=== PATIENT | male | born 1955 | race Caucasian/White ===

== ENCOUNTER 2018-07-17 15:20 | Emergency (ER) | payer MEDICARE, OTHER | END 2018-07-17 17:23 | disposition home or self-care (01) | LOC: M ED 17:23 | DX: J47.0 Bronchiectasis with acute lower respiratory infection (principal); Z72.0 Tobacco use; Z79.899 Other long term (current) drug therapy | CPT/HCPCS: 71046 ==

== ENCOUNTER 2018-07-22 09:11 | Emergency (ER) | payer MEDICARE, OTHER ==
[2018-07-22] MEDS ORDERED: predniSONE 20 MG TAB As Ordered (09:43)
[2018-07-22] MEDS: IPRATROPIUM 0.5MG/ALBUTEROL 2.5MG INH SOL UD 3ML (DUONEB)(J7620) NEB (09:46)
[2018-07-22] MEDS: predniSONE 20 MG TAB PO (09:48)
[2018-07-22 10:18] LABS: HEMATOCRIT 39.3 % (42.0-52.0); HEMOGLOBIN 13.1 g/dl (13.5-17.5); MEAN CORPUSCULAR HEMOGLOBIN 30.9 pg (27.0-33.0); MEAN CORPUSCULAR HGB CONC 33.3 g/dl (32.0-36.5); MEAN CORPUSCULAR VOLUME 92.7 fl (80.0-96.0); PLATELET COUNT, AUTOMATED 181 10^3/uL (150-450); RED BLOOD COUNT 4.24 10^6/uL (4.30-6.10); RED CELL DISTRIBUTION WIDTH 13.5 % (11.5-14.5); WHITE BLOOD COUNT 9.7 10^3/uL (4.0-10.0)
[2018-07-22 10:55] LABS: ANION GAP 8 MEQ/L (8-16); BLOOD UREA NITROGEN 11 MG/DL (7-18); CALCIUM LEVEL 8.3 MG/DL (8.8-10.2); CARBON DIOXIDE LEVEL 25 MEQ/L (21-32); CHLORIDE LEVEL 108 MEQ/L (98-107); CREATININE FOR GFR 0.86 MG/DL (0.70-1.30); GLOMERULAR FILTRATION RATE > 60.0 (>49); GLUCOSE, FASTING 89 MG/DL (70-100); POTASSIUM SERUM 4.1 MEQ/L (3.5-5.1); SODIUM LEVEL 141 MEQ/L (136-145)
== END 2018-07-22 10:50 | disposition home or self-care (01) ==
LOC: M ED 09:11
DX: J44.1 Chronic obstructive pulmonary disease with (acute) exacerbation (principal); Z85.528 Personal history of other malignant neoplasm of kidney; Z90.5 Acquired absence of kidney; Z72.0 Tobacco use; Z79.899 Other long term (current) drug therapy
CPT/HCPCS: 71046

== ENCOUNTER 2018-11-08 15:44 | Emergency (ER) | payer MEDICARE, OTHER ==
[~2018-11-08] VITALS: Ht 185.4 cm; Wt 67.0 kg
[~2018-11-08 15:44] MED LIST: CEPA1LOZ5 PO; COMBAER6 INH; GABA-845 PO; PRED20TA PO; SING10TA32 PO; VENTAER INH; ZITHTAB PO
[2018-11-08] MEDS ORDERED: ALBU83IN NEB (15:57)
[2018-11-08] MEDS ORDERED: GABA600T4 PO (15:57)
--- NOTE | 2018-11-08 17:10 | REP ---
Chest two views HISTORY: Cough Comparison: 07/22/2018 The lungs are hyperinflated. An increase in interstitial markings is present in the lungs. Curvilinear density is present in the right upper lobe consistent with scarring. Bullae are present in the upper lobes. The heart is normal in size. The pulmonary vasculature is normal in appearance. The bony structure is intact. IMPRESSION: Findings consistent with COPD. Electronically Signed by Arvind Dowell MD 11/08/2018 05:02 P
[2018-11-08 17:26] VITALS: BP 116/71
[2018-11-08] MEDS ORDERED: MUCI600T37 PO (17:38)
[2018-11-08] MEDS ORDERED: LIDO1SOL7 PO (17:38)
== END 2018-11-08 17:47 | disposition home or self-care (01) ==
LOC: M ED 15:44
DX: J02.8 Acute pharyngitis due to other specified organisms (principal); J40 Bronchitis, not specified as acute or chronic; J44.9 Chronic obstructive pulmonary disease, unspecified; Z79.899 Other long term (current) drug therapy

== ENCOUNTER → 2018-11-16 | Outpatient (CLI) | payer MEDICARE, OTHER ==
[~2018-11-16] MED LIST changes: +ALBU83IN NEB; +GABA600T4 PO; +LIDO1SOL7 PO; +MUCI600T37 PO
== END ==
LOC: M RAD 15:44
PROVIDERS: ATTEND Otolaryngology
DX: R22.1 Localized swelling, mass and lump, neck (principal)

== ENCOUNTER → 2018-11-17 | Outpatient (CLI) | payer MEDICARE, OTHER ==
[~2018-11-17] MED LIST changes: +ISOVUE-370 76% 100ML VIAL (Q9967) As Ordered ONE
[2018-11-17 08:11] LABS: BLOOD UREA NITROGEN 13 MG/DL (7-18); CREATININE FOR GFR 1.03 MG/DL (0.70-1.30); GLOMERULAR FILTRATION RATE > 60.0 (>49)
--- NOTE | 2018-11-17 19:18 | REP ---
CT NECK WITHOUT CONTRAST: HISTORY: Neck mass. CONTRAST: Isovue-370, 75 mL A BB was placed on the left side of the neck at the C4-5 level. There is thickening of the epiglottis and aryepiglottic folds. There is inferior extension to the flow of the false vocal cords. There is very mild mass effect on the hypopharynx. The naso- and oropharynx, and subglottic trachea are normal in appearance. The salivary and thyroid glands are normal in size and density. Calcified atherosclerotic plaques are present at the carotid bifurcations. Small lymph nodes less than 1 cm in size are present in the posterior triangles, submandibular and submental areas. Degenerative change is present in the cervical spine. Bullae are present in the lung apices. Scarring is present in the left lung apex. Mucosal thickening is present in the maxillary and right ethmoid sinuses. IMPRESSION: There is thickening of the epiglottis and aryepiglottic folds suspicious for a neoplasm. There is mild mass effect on the hypopharynx. Electronically Signed by Arvind Dowell MD 11/17/2018 07:21 P
== END ==
LOC: M LAB 07:13
PROVIDERS: ATTEND Otolaryngology
DX: R22.1 Localized swelling, mass and lump, neck (principal); J43.9 Emphysema, unspecified; M50.30 Other cervical disc degeneration, unspecified cervical region; I65.23 Occlusion and stenosis of bilateral carotid arteries
CPT/HCPCS: 36415; 70491; 82565; 84520; Q9967

== ENCOUNTER → 2018-11-25 | Outpatient (CLI) | payer MEDICARE, OTHER ==
[~2018-11-25] MED LIST changes: +AMOX875T2 PO; +HYDR-3713 PO; +IPRA0.00 INH; -ISOVUE-370 76% 100ML VIAL (Q9967) As Ordered ONE
[2018-11-25 07:49] LABS: HEMATOCRIT 39.9 % (42.0-52.0); HEMOGLOBIN 13.2 g/dl (13.5-17.5); MEAN CORPUSCULAR HEMOGLOBIN 30.6 pg (27.0-33.0); MEAN CORPUSCULAR HGB CONC 33.1 g/dl (32.0-36.5); MEAN CORPUSCULAR VOLUME 92.4 fl (80.0-96.0); PLATELET COUNT, AUTOMATED 220 10^3/uL (150-450); RED BLOOD COUNT 4.32 10^6/uL (4.30-6.10); WHITE BLOOD COUNT 6.7 10^3/uL (4.0-10.0)
[2018-11-25 08:19] LABS: ALBUMIN 3.6 GM/DL (3.2-5.2); ALT/SGPT 16 U/L (12-78); BILIRUBIN,TOTAL 0.3 MG/DL (0.2-1.0); BLOOD UREA NITROGEN 17 MG/DL (7-18); CALCIUM LEVEL 8.7 MG/DL (8.8-10.2); CARBON DIOXIDE LEVEL 26 MEQ/L (21-32); CHLORIDE LEVEL 109 MEQ/L (98-107); CHOLESTEROL LEVEL 156 MG/DL (<200); CHOLESTEROL RISK RATIO 3.466 (<5); FREE T4 0.66 NG/DL (0.76-1.46); GLOMERULAR FILTRATION RATE > 60.0 (>49); GLUCOSE, FASTING 117 MG/DL (70-100); HDL CHOLESTEROL 45 MG/DL (>40); LDL CHOLESTEROL 96 MG/DL (<100); NON-HDL-C 111 MG/DL; POTASSIUM SERUM 4.8 MEQ/L (3.5-5.1); SODIUM LEVEL 142 MEQ/L (136-145); THYROID STIMULATING HORMONE 0.897 uIU/ML (0.358-3.740); TOTAL PROTEIN 6.9 GM/DL (6.4-8.2); TRIGLYCERIDES LEVEL 77 MG/DL (<150)
--- NOTE | 2018-11-25 09:15 | REP ---
Chest two views HISTORY: COPD Comparison: 11/08/2018 The lungs are hyperinflated. An increase in interstitial markings is present in the lungs. Curvilinear density is present in the right upper lobe consistent with scarring. Bullae are present in the upper lobes. The heart is normal in size. The pulmonary vasculature is normal in appearance. The bony structure is intact. IMPRESSION: COPD. Electronically Signed by Arvind Dowell MD 11/25/2018 09:06 A
[2018-11-25 10:04] LABS: TOTAL 25(OH) VITAMIN D 15.4 NG/ML (30.0-100.0)
== END ==
LOC: M LAB 07:21
PROVIDERS: ATTEND Physician Assistant
DX: J44.0 Chronic obstructive pulmonary disease with (acute) lower respiratory infection (principal); Z85.528 Personal history of other malignant neoplasm of kidney; Z79.899 Other long term (current) drug therapy

== ENCOUNTER 2018-12-01 10:19 | Day surgery (SDC) | payer MEDICARE, OTHER ==
[~2018-12-01] VITALS: Ht 185.4 cm; Wt 72.1 kg
[2018-12-01] MEDS ORDERED: LR 1,000 ML IV ONE (10:30)
[2018-12-01] MEDS ORDERED: dexameTHASONE 4 MG/ML 1ML VIAL (J1100) IV ONE (10:30)
[2018-12-01] MEDS ORDERED: MIDAZOLAM INJ 2 MG/2 ML VIAL (J2250) As Ordered ONE (12:12)
[2018-12-01] MEDS ORDERED: PROPOFOL 200 MG/20 ML VIAL As Ordered ONE (12:12)
[2018-12-01] MEDS ORDERED: fentaNYL 100 MCG/2 ML INJECTION (J3010) As Ordered ONE ×3 (12:12→13:17)
[2018-12-01] MEDS ORDERED: ROCURONIUM BROMIDE 50 MG/5 ML VIAL As Ordered ONE (12:13)
[2018-12-01] MEDS ORDERED: ONDANSETRON 4MG/2ML VIAL (J2405) As Ordered ONE (12:14)
[2018-12-01] MEDS ORDERED: SUCCINYLCHOLINE 100 MG/5 ML SYRINGE (J0330) As Ordered ONE (12:14)
[2018-12-01] MEDS ORDERED: dexameTHASONE 4 MG/ML 1ML VIAL (J1100) As Ordered ONE ×2 (12:14→13:10)
[2018-12-01] MEDS ORDERED: OXYMETAZOLINE NASAL SPRAY (AFRIN) As Ordered ONE (12:16)
[2018-12-01] MEDS ORDERED: LIDOCAINE W/EPINEPHRINE 1% 20ML VIAL As Ordered ONE (12:16)
[2018-12-01] MEDS ORDERED: METHYLENE BLUE 0.5% (5MG/ML) 10 ML AMP (PROVAYBLUE)(Q9968 PER 1MG) As Ordered ONE (12:16)
[2018-12-01] MEDS ORDERED: LIDOCAINE 2% INJ 100 MG/5 ML SDV (FOR ANES.) As Ordered ONE (13:02)
[2018-12-01] MEDS ORDERED: GLYCOPYRROLATE INJ 0.2 MG/ML 2 ML VIAL As Ordered ONE (13:13)
[2018-12-01] MEDS ORDERED: PHENYLephrine HCL 500 MCG/5 ML (100MCG/ML) SYRINGE (J2370) As Ordered ONE (13:25)
[2018-12-01] MEDS ORDERED: SUGAMMADEX SODIUM 500 MG/5 ML VIAL (BRIDION) As Ordered ONE (13:34)
[2018-12-01] MEDS ORDERED: NORCO, ANEXSIA 5/325MG TABLET (HYDROcodone/ACETAMINOPHEN) As Ordered ONE (14:19)
[2018-12-01 14:29] VITALS: BP 124/76
[2018-12-01] MEDS ORDERED: fentaNYL 100 MCG/2 ML INJECTION (J3010) IV PRN (14:30)
[2018-12-01] MEDS ORDERED: LR 1,000 ML IV SCH ×2 (14:30)
[2018-12-01] MEDS ORDERED: PERCOCET 5MG/325MG TAB PO PRN (14:30)
[2018-12-01] MEDS ORDERED: NORCO, ANEXSIA 5/325MG TABLET (HYDROcodone/ACETAMINOPHEN) PO PRN (14:30)
--- NOTE | 2018-12-05 15:19 | RO ---
DATE OF PROCEDURE: 12/01/2018 PREPROCEDURE DIAGNOSES: Sore throat and dysphonia. POSTPROCEDURE DIAGNOSES: Sore throat and dysphonia. PROCEDURE PERFORMED: Direct suspension microlaryngoscopy with biopsy of the laryngeal surface of the epiglottis. SURGEON: Stone Willingham MD CLOTH EXAMINER: ANESTHESIA: General. CLINICAL PREAMBLE: This 63-year-old man presented to the office complaining of sore throat for at least 2 to 3 months. Flexible laryngoscopy revealed mucosal lesion over the laryngeal surface of the epiglottis. The lesions appeared to be highly suspicious for a malignant process. Management options, including the surgery listed above have been discussed. The patient understood and consented to the procedure. INTRAOPERATIVE FINDINGS: Mucosal lesion on the laryngeal surface of the epiglottis extending down to the petiole of the epiglottis area. DESCRIPTION OF PROCEDURE: The patient was identified in preoperative holding and brought to the operating room in stable condition. He was laid in supine position on the operating table. The patient received general anesthesia followed by orotracheal tube intubation without incident. The patient was prepped and draped in the usual fashion for the procedure. Bimanual palpation of the oral cavity, oral tongue, base of tongue, lateral and posterior oropharyngeal bucio showed no evidence of discreet nodule. The Dedo-Pilling laryngoscope was used to perform inspection of the mucosa of the oral cavity, oropharynx, piriform sinuses and the posterior pharyngeal area. No mucosal lesions were noted in those anatomic regions. Mucosal lesions were noted over the laryngeal surface of the epiglottis and extending down to the petiole. The aryepiglottic folds were mildly edematous. The true and false cords were free of mucosal lesion. The epiglottis appeared to be quite . The biopsies were obtained from the laryngeal surface of the epiglottis. Hemostasis was achieved using cottonoid pledgets soaked in Afrin solution. At the end of the procedure, sponge and instrument counts were correct. No complications were encountered. Estimated blood loss less than 1 mL. General anesthesia was reversed, and the patient was extubated and brought to the recovery room in stable condition.
== END 2018-12-01 15:26 | disposition home or self-care (01) ==
LOC: M SDC 10:19
PROVIDERS: ATTEND Otolaryngology
DX: C10.1 Malignant neoplasm of anterior surface of epiglottis (principal); R49.0 Dysphonia; J02.9 Acute pharyngitis, unspecified; J38.7 Other diseases of larynx; J44.9 Chronic obstructive pulmonary disease, unspecified; M47.816 Spondylosis without myelopathy or radiculopathy, lumbar region; F17.200 Nicotine dependence, unspecified, uncomplicated; R06.02 Shortness of breath; M54.9 Dorsalgia, unspecified; Z79.899 Other long term (current) drug therapy; Z85.528 Personal history of other malignant neoplasm of kidney
CPT/HCPCS: 31535; 88305; 88342; J0330; J1100; J2250; J2370; J2405; J3010; Q9968

== ENCOUNTER → 2018-12-29 | Outpatient (REF) | payer MEDICARE, OTHER ==
[2018-12-29 12:24] LABS: FOLATE 4.6 NG/ML (>5.4); FREE T4 0.78 NG/DL (0.76-1.46); PERCENT SATURATION 37.9 % (19.7-50.0); THYROID STIMULATING HORMONE 0.47 uIU/ML (0.358-3.740)
[2018-12-29 13:11] LABS: HEMOGLOBIN A1c 5.7 %
== END ==
LOC: M SFHCPLAZ 09:17
PROVIDERS: ATTEND Physician Assistant
DX: D64.9 Anemia, unspecified (principal); Z85.528 Personal history of other malignant neoplasm of kidney; R73.01 Impaired fasting glucose
CPT/HCPCS: 36415; 82607; 82728; 82746; 83036; 83550; 84439; 84443; 85046; 90682; G0008; G0463

== ENCOUNTER → 2019-01-09 | Outpatient (CLI) | payer MEDICARE, OTHER ==
--- NOTE | 2019-01-09 14:21 | REP ---
Chest two views HISTORY: COPD Comparison: 11/25/2018 The lungs are hyperinflated. An increase in interstitial markings is present in the lungs. Curvilinear density is present in the right upper lobe consistent with scarring. Bullae are present in the upper lobes. The heart is normal in size. The pulmonary vasculature is normal in appearance. The bony structure is intact. There are old compression fractures of several thoracic vertebral bodies with minimal height loss. IMPRESSION: COPD. Electronically Signed by Arvind Dowell MD 01/09/2019 02:12 P
[2019-01-09 17:27] LABS: ALBUMIN 3.6 GM/DL (3.2-5.2); ALT/SGPT 19 U/L (12-78); BILIRUBIN,TOTAL 0.4 MG/DL (0.2-1.0); BLOOD UREA NITROGEN 20 MG/DL (7-18); CALCIUM LEVEL 8.9 MG/DL (8.8-10.2); CARBON DIOXIDE LEVEL 33 MEQ/L (21-32); CHLORIDE LEVEL 102 MEQ/L (98-107); CREATININE FOR GFR 0.98 MG/DL (0.70-1.30); GLOMERULAR FILTRATION RATE > 60.0 (>49); GLUCOSE, FASTING 95 MG/DL (70-100); POTASSIUM SERUM 4.6 MEQ/L (3.5-5.1); SODIUM LEVEL 139 MEQ/L (136-145); TOTAL PROTEIN 6.9 GM/DL (6.4-8.2)
[2019-01-09 17:56] LABS: BASO # 0.1 10^3/uL (0.0-0.2); BASO % 0.8 % (0.0-1.0); EOS # 0.2 10^3/uL (0.0-0.50); HEMATOCRIT 41.4 % (42.0-52.0); HEMOGLOBIN 13.6 g/dl (13.5-17.5); LYMPH # 2.1 10^3/uL (1.5-4.5); LYMPH % 23.4 % (24.0-44.0); MEAN CORPUSCULAR HEMOGLOBIN 31.1 pg (27.0-33.0); MEAN CORPUSCULAR HGB CONC 32.9 g/dl (32.0-36.5); MEAN CORPUSCULAR VOLUME 94.7 fl (80.0-96.0); MONO # 0.7 10^3/uL (0.0-0.8); MONO % 7.8 % (0.0-5.0); NEUTROPHILS # 5.8 10^3/uL (1.8-7.7); NEUTROPHILS % 65.9 % (36.0-66.0); PLATELET COUNT, AUTOMATED 242 10^3/uL (150-450); RED BLOOD COUNT 4.37 10^6/uL (4.30-6.10); WHITE BLOOD COUNT 8.8 10^3/uL (4.0-10.0)
== END ==
LOC: M SMT 13:23
PROVIDERS: ATTEND Physician Assistant Medical
DX: J01.01 Acute recurrent maxillary sinusitis (principal); J44.1 Chronic obstructive pulmonary disease with (acute) exacerbation
CPT/HCPCS: 36415; 71046; 80053; 85025; G0463

== ENCOUNTER → 2019-01-11 | Outpatient (CLI) | payer MEDICARE, OTHER ==
--- NOTE | 2019-01-11 11:35 | REP ---
LOW-DOSE LUNG SCREENING CT: 01/11/2019. COMPARISON: Chest x-ray 01/09/2019, CT angio 08/14/2013. CLINICAL HISTORY: Personal history of nicotine dependence. FINDINGS: Lung windows presented for standard protocol with low-dose lung screening CT. Lungs are hyperinflated. There is a giant bulla in the right apex, unchanged. There is extensive bullous emphysematous change in both upper lung zones otherwise with scattered bulla throughout the mid and lower lung zones to a much lesser extent. There is no pleural effusion, pleural thickening, or pleural-based mass. There is curvilinear scarring in the left apex, pleuroparenchymal fibrosis unchanged. There are also some linear fibrotic and stable nodular densities in the right apex and upper lobe. Some cylindrical bronchiectatic changes are noted bilaterally. No parenchymal masses are identified. No definite new nodule or acute infiltrate. Heart size not enlarged. No widening of the mediastinum. Ectatic aortic arch. The trachea and mainstem bronchi, grossly unremarkable. IMPRESSION: 1. Findings best characterized as Lung-RADS 2, benign findings. Patients with this category of examination have less than 1% chance of malignancy being present at the time of the examination. Followup recommended 1 year. There is advanced bullous emphysematous change, which appears stable. Electronically Signed by Felix Pretty MD 01/11/2019 09:50 P
== END ==
LOC: M RAD 07:57
PROVIDERS: ATTEND Physician Assistant
DX: Z87.891 Personal history of nicotine dependence (principal)

== ENCOUNTER → 2019-01-31 | Outpatient (REF) | payer MEDICARE, OTHER | LOC: M SFHCPLAZ 09:44 | PROVIDERS: ATTEND Physician Assistant | DX: J47.1 Bronchiectasis with (acute) exacerbation (principal) ==

== ENCOUNTER → 2019-03-06 | Outpatient (REF) | payer MEDICARE, OTHER ==
[~2019-03-06] MED LIST changes: -CEPA1LOZ5 PO; +CEPALOZ8 PO; -LIDO1SOL7 PO; +LIDO1SOL8 PO
== END ==
LOC: M SFHCPLAZ 12:58
PROVIDERS: ATTEND Nurse Practitioner Family
DX: J44.1 Chronic obstructive pulmonary disease with (acute) exacerbation (principal)
CPT/HCPCS: 87070; 87185; 87205; G0463

== ENCOUNTER → 2019-09-19 | Outpatient (CLI) | payer MEDICARE, OTHER ==
[2019-09-19 15:57] LABS: BLOOD UREA NITROGEN 12 MG/DL (7-18); CREATININE FOR GFR 1.12 MG/DL (0.70-1.30); GLOMERULAR FILTRATION RATE > 60.0 (>49)
== END ==
LOC: M LAB 14:39
PROVIDERS: ATTEND Otolaryngology
DX: C32.1 Malignant neoplasm of supraglottis (principal); R07.0 Pain in throat

== ENCOUNTER → 2019-09-20 | Outpatient (CLI) | payer MEDICARE, OTHER ==
[~2019-09-20] MED LIST changes: +ISOVUE-370 76% 100ML VIAL (Q9967) As Ordered ONE
--- NOTE | 2019-09-20 17:03 | REP ---
CT neck soft tissues: 09/20/2019. Indication: Sore throat. Comparison: 05/22/2019 and 11/17/2018. Technique: Axial CT images of the neck soft tissues were obtained following IV administration of 75 ml Isovue 370. Findings: There is continued thickening of the aryepiglottic folds and base of the epiglottis with nodularity particularly on the right of the pharyngeal mucosal space. There is not appear to be tumor extension into the parapharyngeal space. Loss of tissue planes is noted, indicative of prior radiation. The patient appears cachectic. Bilateral carotid atherosclerotic disease is present. No significant cervical lymphadenopathy is present. No ocular, intraorbital or intracranial abnormalities are detected. The submandibular, parotid and thyroid glands are without focal abnormality. Significant bulla and emphysematous sequelae of the visualized lungs are noted. Impression: Continued prominent soft tissue predominantly within the aryepiglottic folds on the right as described. Findings may represent a combination of residual neoplasm or post-treatment sequelae. Continued short-term imaging and clinical follow-up is recommended. Electronically Signed by Gennaro Woodard DO 09/20/2019 04:55 P
== END ==
LOC: M RAD 09-04 17:47
PROVIDERS: ATTEND Otolaryngology
DX: R07.0 Pain in throat (principal)
CPT/HCPCS: 70491; Q9967

== ENCOUNTER 2019-12-21 08:17 | Day surgery (SDC) | payer MEDICARE, OTHER ==
[~2019-12-21] VITALS: Ht 182.9 cm; Wt 67.8 kg
[~2019-12-21 08:17] MED LIST changes: +ALBU83IN INH; -ISOVUE-370 76% 100ML VIAL (Q9967) As Ordered ONE; -LIDO1SOL8 PO; +LIDO2SOL17 PO; +LIDOCAINE 2% INJ 100 MG/5 ML SDV (FOR ANES.) As Ordered ONE; +MOME50SP; +NS 1,000 ML IV ONE; +propofoL 200 MG/20 ML VIAL As Ordered ONE
[2019-12-21] MEDS ORDERED: GLUCAGON FOR INJ 1 MG VIAL (J1610) As Ordered ONE (09:15)
[2019-12-21] MEDS ORDERED: propofoL 200 MG/20 ML VIAL As Ordered ONE (09:17)
--- NOTE | 2019-12-21 09:48 | ROOR ---
Patient Name: Eladio Leung Procedure Date: 12/21/2019 8:56 AM Date of : 1955 Age: 64 Room: [facility] Gender: Male Note Status: Finalized Procedure: Colonoscopy Indications: Screening for colorectal malignant neoplasm Providers: Js CEBALLOS MD Referring MD: Farrah Douglass NP Requesting Provider: Medicines: Monitored Anesthesia Care Complications: No immediate complications. Procedure: Pre-Anesthesia Assessment: - The heart rate, respiratory rate, oxygen saturations, blood pressure, adequacy of pulmonary ventilation, and response to care were monitored throughout the procedure. The Colonoscope was introduced through the anus and advanced to the terminal ileum, with identification of the appendiceal orifice and IC valve. The colonoscopy was performed without difficulty. The patient tolerated the procedure well. The quality of the bowel preparation was fair. Findings: The perianal and digital rectal examinations were normal. Three flat polyps were found in the ascending colon and cecum. The polyps were 5 to 12 mm in size. These polyps were removed with a piecemeal technique using a cold snare. Resection and retrieval were complete. Three flat polyps were found in the descending colon. The polyps were 5 to 12 mm in size. These polyps were removed with a piecemeal technique using a cold snare. Resection and retrieval were complete. To prevent bleeding after the polypectomy, three hemostatic clips were successfully placed. Two sessile polyps were found in the sigmoid colon. The polyps were 5 to 8 mm in size. These polyps were removed with a cold snare. Resection and retrieval were complete. Internal hemorrhoids were found during retroflexion. A few medium-mouthed diverticula were found in the sigmoid colon. The exam was otherwise without abnormality on direct and retroflexion views. Impression: - Preparation of the colon was fair. - Three 5 to 12 mm polyps in the ascending colon and in the cecum, removed piecemeal using a cold snare. Resected and retrieved. - Three 5 to 12 mm polyps in the descending colon, removed piecemeal using a cold snare. Resected and retrieved. Clips were placed. - Two 5 to 8 mm polyps in the sigmoid colon, removed with a cold snare. Resected and retrieved. - Internal hemorrhoids. - Mild diverticulosis in the sigmoid colon. - The examination was otherwise normal on direct and retroflexion views. Recommendation: - Repeat colonoscopy in 1 year for surveillance after piecemeal polypectomy. - No ibuprofen, naproxen, or other non-steroidal anti-inflammatory drugs for 10 days after polyp removal. Js Ceballos MD Js CEBALLOS MD 12/21/2019 9:47:25 AM Electronically signed by Js CEBALLOS MD Number of Addenda: 0 Note Initiated On: 12/21/2019 8:56 AM Estimated Blood Loss: Estimated blood loss: none.
[2019-12-21 10:05] VITALS: BP 87/58
== END 2019-12-21 10:17 | disposition home or self-care (01) ==
LOC: M OPP 08:17
PROVIDERS: ATTEND Internal Medicine Gastroenterology
DX: Z12.11 Encounter for screening for malignant neoplasm of colon (principal); K64.8 Other hemorrhoids; D12.2 Benign neoplasm of ascending colon; D12.4 Benign neoplasm of descending colon; D12.5 Benign neoplasm of sigmoid colon; K57.30 Diverticulosis of large intestine without perforation or abscess without bleeding; Z79.899 Other long term (current) drug therapy; F17.210 Nicotine dependence, cigarettes, uncomplicated; Z85.53 Personal history of malignant neoplasm of renal pelvis; Z92.21 Personal history of antineoplastic chemotherapy; Z92.3 Personal history of irradiation
CPT/HCPCS: 45385; 88305; J1610

== ENCOUNTER → 2020-01-11 | Outpatient (REF) | payer MEDICARE, OTHER ==
[~2020-01-11] MED LIST changes: -LIDOCAINE 2% INJ 100 MG/5 ML SDV (FOR ANES.) As Ordered ONE; -NS 1,000 ML IV ONE; -propofoL 200 MG/20 ML VIAL As Ordered ONE
[2020-01-11 13:56] LABS: BASO # 0.1 10^3/uL (0.0-0.2); BASO % 1.6 % (0.0-1.0); EOS # 0.2 10^3/uL (0.0-0.5); EOS % 4.1 % (0.0-3.0); HEMOGLOBIN 12.9 g/dl (13.5-17.5); LYMPH # 0.9 10^3/uL (1.5-5.0); LYMPH % 22.2 % (24.0-44.0); MEAN CORPUSCULAR HGB CONC 33.1 g/dl (32.0-36.5); MEAN CORPUSCULAR VOLUME 99.7 fl (80.0-96.0); MONO # 0.5 10^3/uL (0.0-0.8); MONO % 12.9 % (0.0-5.0); NEUTROPHILS # 2.3 10^3/uL (1.5-8.5); NEUTROPHILS % 58.9 % (36.0-66.0); PLATELET COUNT, AUTOMATED 199 10^3/uL (150-450); RED BLOOD COUNT 3.91 10^6/uL (4.30-6.10); WHITE BLOOD COUNT 3.9 10^3/uL (4.0-10.0)
[2020-01-11 14:12] LABS: ALBUMIN 3.6 GM/DL (3.2-5.2); ALT/SGPT 15 U/L (12-78); BILIRUBIN,TOTAL 0.2 MG/DL (0.2-1.0); BLOOD UREA NITROGEN 12 MG/DL (7-18); CALCIUM LEVEL 8.4 MG/DL (8.8-10.2); CARBON DIOXIDE LEVEL 29 MEQ/L (21-32); CHLORIDE LEVEL 106 MEQ/L (98-107); CREATININE FOR GFR 0.94 MG/DL (0.70-1.30); FREE T4 0.79 NG/DL (0.76-1.46); GLOMERULAR FILTRATION RATE > 60.0 (>49); GLUCOSE, FASTING 85 MG/DL (70-100); POTASSIUM SERUM 4.4 MEQ/L (3.5-5.1); SODIUM LEVEL 138 MEQ/L (136-145); TOTAL PROTEIN 6.8 GM/DL (6.4-8.2)
== END ==
LOC: M SFHCPLAZ 11:51
PROVIDERS: ATTEND Nurse Practitioner Family
DX: J01.01 Acute recurrent maxillary sinusitis (principal); C14.0 Malignant neoplasm of pharynx, unspecified; N52.9 Male erectile dysfunction, unspecified; Z79.899 Other long term (current) drug therapy
CPT/HCPCS: 36415; 80053; 84439; 84443; 85025; G0463

== ENCOUNTER → 2020-04-02 | Outpatient (REF) | payer MEDICARE, OTHER ==
[2020-04-02 13:21] LABS: HEMATOCRIT 37.6 % (42.0-52.0); HEMOGLOBIN 12.8 g/dl (13.5-17.5); MEAN CORPUSCULAR HEMOGLOBIN 33.5 pg (27.0-33.0); MEAN CORPUSCULAR VOLUME 98.4 fl (80.0-96.0); PLATELET COUNT, AUTOMATED 193 10^3/uL (150-450); RED BLOOD COUNT 3.82 10^6/uL (4.30-6.10); WHITE BLOOD COUNT 4.7 10^3/uL (4.0-10.0)
[2020-04-02 14:03] LABS: BLOOD UREA NITROGEN 11 MG/DL (7-18); CALCIUM LEVEL 8.3 MG/DL (8.8-10.2); CARBON DIOXIDE LEVEL 27 MEQ/L (21-32); CHLORIDE LEVEL 107 MEQ/L (98-107); FERRITIN 178 NG/ML (26-388); FOLATE 1.7 NG/ML; GLOMERULAR FILTRATION RATE > 60.0 (>49); GLUCOSE, FASTING 72 MG/DL (70-100); POTASSIUM SERUM 4.1 MEQ/L (3.5-5.1); SODIUM LEVEL 137 MEQ/L (136-145); VITAMIN B12 LEVEL 238 PG/ML
== END ==
LOC: M SFHCPLAZ 11:50
PROVIDERS: ATTEND Nurse Practitioner Family
DX: D64.9 Anemia, unspecified (principal); E03.9 Hypothyroidism, unspecified; M47.816 Spondylosis without myelopathy or radiculopathy, lumbar region

== ENCOUNTER → 2020-10-23 | Outpatient (CLI) | payer MEDICARE, OTHER ==
--- NOTE | 2020-10-23 13:16 | REP ---
INDICATION: ENLARGED TESTICLE COMPARISON: 03/19/2009 TECHNIQUE: Angelo scale and color Doppler evaluation using linear and curved array transducer with color Doppler evaluation. FINDINGS: A large right complex hydrocele with septation and debris appears increased from prior examination. Right testicle again demonstrates a simple and relatively stable cyst in the region of the rete testis measuring approximately 11 x 17 x 8 mm. The left testicle includes a stable 3.6 x 4.4 x 3.6 mm simple cyst. The testicles demonstrate symmetric vascularity without evidence for torsion, obvious infectious/inflammatory process, or testicular mass. No varicoceles identified. Right testicle measures 5.0 x 2.6 x 3.3 cm. Left testicle measures 4.9 x 2.4 x 3.2 cm. IMPRESSION: 1. Large right complex hydrocele (less likely large ill-defined epididymal cyst) which appears slightly increased from prior examination of 2008. 2. Simple appearing cysts in the bilateral testicles are essentially unchanged. 3. No evidence for torsion or orchitis/epididymitis. <Electronically signed by Amilcar Tobar > 10/23/20 [id number]
== END ==
LOC: M RAD 12:23
PROVIDERS: ATTEND Physician Assistant
DX: N43.3 Hydrocele, unspecified (principal); N44.2 Benign cyst of testis; N50.89 Other specified disorders of the male genital organs; R30.0 Dysuria
CPT/HCPCS: 36415; 76870; 80053; 81001; 81002; 85025; 87086; 93976; G0103; G0463

== ENCOUNTER → 2020-10-23 | Outpatient (REF) | payer MEDICARE, OTHER ==
[2020-10-23 13:47] LABS: BASO % 0.9 % (0.0-1.0); EOS # 0.2 10^3/uL (0.0-0.5); EOS % 3.9 % (0.0-3.0); HEMATOCRIT 39.3 % (42.0-52.0); HEMOGLOBIN 12.9 g/dl (13.5-17.5); LYMPH # 0.8 10^3/uL (1.5-5.0); LYMPH % 16.7 % (24.0-44.0); MEAN CORPUSCULAR HEMOGLOBIN 33.1 pg (27.0-33.0); MEAN CORPUSCULAR HGB CONC 32.8 g/dl (32.0-36.5); MEAN CORPUSCULAR VOLUME 100.8 fl (80.0-96.0); MONO # 0.6 10^3/uL (0.0-0.8); MONO % 12.8 % (0.0-5.0); NEUTROPHILS # 3.1 10^3/uL (1.5-8.5); NEUTROPHILS % 65.5 % (36.0-66.0); PLATELET COUNT, AUTOMATED 244 10^3/uL (150-450); WHITE BLOOD COUNT 4.7 10^3/uL (4.0-10.0)
[2020-10-23 14:03] LABS: APPEARANCE, URINE CLEAR (CLEAR); BACTERIA, URINE AUTO NEGATIVE (NEGATIVE); BILIRUBIN, URINE AUTO NEGATIVE (NEGATIVE); BLOOD, URINE BLOOD NEGATIVE (NEGATIVE); COLOR, URINE STRAW (YELLOW); GLUCOSE, URINE (UA) AUTO NEGATIVE (NEGATIVE); KETONE, URINE AUTO NEGATIVE (NEGATIVE); LEUKOCYTE ESTERASE, URINE AUTO NEGATIVE (NEGATIVE); MUCUS, URINE SMALL (NEGATIVE); NITRITE, URINE AUTO NEGATIVE (NEGATIVE); PROTEIN, URINE AUTO NEGATIVE (NEGATIVE); RBC, URINE AUTO 0 /HPF (0-3); SPECIFIC GRAVITY URINE AUTO 1.009 (1.002-1.035); SQUAMOUS EPITHELIAL CELL UR AU 0 /HPF (0-6); UROBILINOGEN, URINE AUTO 0.2 mg/dL (0.0-2.0); WBC, URINE AUTO 1 /HPF (0-3)
[2020-10-23 14:18] LABS: ALBUMIN 3.8 GM/DL (3.2-5.2); ALT/SGPT 17 U/L (12-78); BILIRUBIN,TOTAL 0.2 MG/DL (0.2-1.0); BLOOD UREA NITROGEN 11 MG/DL (7-18); CALCIUM LEVEL 8.9 MG/DL (8.8-10.2); CARBON DIOXIDE LEVEL 30 MEQ/L (21-32); CHLORIDE LEVEL 103 MEQ/L (98-107); GLOMERULAR FILTRATION RATE > 60.0 (>49); GLUCOSE, FASTING 85 MG/DL (70-100); POTASSIUM SERUM 5.4 MEQ/L (3.5-5.1); SODIUM LEVEL 136 MEQ/L (136-145); TOTAL PROTEIN 6.8 GM/DL (6.4-8.2)
== END ==
LOC: M SFHCPLAZ 10:51
PROVIDERS: ATTEND Physician Assistant
DX: N50.89 Other specified disorders of the male genital organs (principal); R30.0 Dysuria
CPT/HCPCS: 36415; 80053; 81001; 85025; 87086; G0103

== ENCOUNTER → 2020-11-25 | Outpatient (REF) | payer MEDICARE, OTHER ==
[2020-11-25 13:45] LABS: HEMATOCRIT 38.1 % (42.0-52.0); HEMOGLOBIN 12.5 g/dl (13.5-17.5); MEAN CORPUSCULAR HEMOGLOBIN 33.5 pg (27.0-33.0); MEAN CORPUSCULAR HGB CONC 32.8 g/dl (32.0-36.5); MEAN CORPUSCULAR VOLUME 102.1 fl (80.0-96.0); PLATELET COUNT, AUTOMATED 218 10^3/uL (150-450); RED BLOOD COUNT 3.73 10^6/uL (4.30-6.10); WHITE BLOOD COUNT 7.3 10^3/uL (4.0-10.0)
[2020-11-25 14:12] LABS: FOLATE 3.1 NG/ML; FREE T4 0.6 NG/DL (0.76-1.46); POTASSIUM SERUM 4.2 MEQ/L (3.5-5.1); THYROID STIMULATING HORMONE 6.16 uIU/ML (0.358-3.740)
== END ==
LOC: M SFHCPLAZ 09:12
PROVIDERS: ATTEND Nurse Practitioner Family
DX: D51.9 Vitamin B12 deficiency anemia, unspecified (principal); E03.9 Hypothyroidism, unspecified; E87.5 Hyperkalemia

== ENCOUNTER → 2021-09-04 | Outpatient (CLI) | payer MEDICARE, OTHER ==
[~2021-09-04] MED LIST changes: +GABA-283 PO; -GABA-845 PO
== END ==
LOC: M LABSMTC 09:16
PROVIDERS: ATTEND Anesthesiology
DX: Z01.812 Encounter for preprocedural laboratory examination (principal); Z20.822 Contact with and (suspected) exposure to COVID-19

== ENCOUNTER → 2021-09-10 | Outpatient (CLI) | payer MEDICARE, OTHER ==
[2021-09-10 14:12] LABS: FREE THYROXINE INDEX 1.5 % (1.4-3.8); RHEUMATOID FACTOR QUANT < 10.0 IU/ML (<15.0); T UPTAKE 34 % (33-40); THYROXINE (T4) 4.3 UG/DL (4.5-12.0); TOTAL PROTEIN 6.8 GM/DL (6.4-8.2)
[2021-09-10 14:13] LABS: HEMOGLOBIN A1c 5.5 %
[2021-09-10 14:38] LABS: FOLATE 2.3 NG/ML; VITAMIN B12 LEVEL 272 PG/ML
== END ==
LOC: M PLALAB 11:16
PROVIDERS: ATTEND Psychiatry & Neurology Neurology
DX: E11.9 Type 2 diabetes mellitus without complications (principal); E07.9 Disorder of thyroid, unspecified; G62.9 Polyneuropathy, unspecified

== ENCOUNTER → 2021-11-03 | Outpatient (CLI) | payer MEDICARE, OTHER | LOC: M LABSMTC 12:45 | PROVIDERS: ATTEND Anesthesiology | DX: Z20.828 Contact with and (suspected) exposure to other viral communicable diseases (principal); Z11.52 Encounter for screening for COVID-19 ==

== ENCOUNTER 2022-08-06 14:55 | Emergency (ER) | payer MEDICARE, OTHER ==
[~2022-08-06] VITALS: Ht 185.4 cm; Wt 63.2 kg
[~2022-08-06 14:55] MED LIST changes: +ALBU2.5V10 INH; +ALBU2.5V10 NEB; -ALBU83IN INH; -ALBU83IN NEB; +BENZ1LOZ9 PO; -CEPALOZ8 PO; -MOME50SP; +NASO50SP3
[2022-08-06 14:56] VITALS: BP 136/89
[2022-08-06] MEDS ORDERED: APAP325T4 PO (15:01)
== END 2022-08-06 16:44 | disposition left against medical advice (07) ==
LOC: M ED 14:55
DX: Z53.21 Procedure and treatment not carried out due to patient leaving prior to being seen by health care provider (principal)

== ENCOUNTER 2022-08-13 13:42 | Emergency (ER) | payer MEDICARE, OTHER ==
[~2022-08-13] VITALS: Ht 185.4 cm; Wt 62.7 kg
[~2022-08-13 13:42] MED LIST changes: +APAP325T4 PO
[2022-08-13] MEDS ORDERED: TRAM50TA2 (14:03)
[2022-08-13] MEDS ORDERED: METH-1164 (14:03)
[2022-08-13] MEDS ORDERED: LEVO100T5 (14:03)
[2022-08-13] MEDS ORDERED: GABA600T4 PO (14:03)
[2022-08-13] MEDS ORDERED: ACETAMINOPHEN 500 MG TAB PO ONE (16:25)
[2022-08-13] MEDS ORDERED: GABAPENTIN 300 MG CAP PO ONE (17:15)
[2022-08-13 17:34] LABS: BASO # 0.1 10^3/uL (0.0-0.2); BASO % 0.9 % (0.0-1.0); EOS # 0.3 10^3/uL (0.0-0.5); EOS % 3.9 % (0.0-3.0); HEMATOCRIT 41.9 % (42.0-52.0); HEMOGLOBIN 13.8 g/dl (13.5-17.5); LYMPH # 0.7 10^3/uL (1.5-5.0); MEAN CORPUSCULAR HEMOGLOBIN 33.5 pg (27.0-33.0); MEAN CORPUSCULAR HGB CONC 32.9 g/dl (32.0-36.5); MEAN CORPUSCULAR VOLUME 101.7 fl (80.0-96.0); MONO # 0.7 10^3/uL (0.0-0.8); MONO % 9.9 % (2.0-8.0); NEUTROPHILS # 5.2 10^3/uL (1.5-8.5); PLATELET COUNT, AUTOMATED 323 10^3/uL (150-450); RED BLOOD COUNT 4.12 10^6/uL (4.30-6.10); WHITE BLOOD COUNT 6.9 10^3/uL (4.0-10.0)
[2022-08-13 18:02] LABS: ALBUMIN 4.1 GM/DL (3.2-5.2); ALT/SGPT 20 U/L (12-78); BILIRUBIN,DIRECT 0.1 MG/DL (0.0-0.2); BILIRUBIN,TOTAL 0.4 MG/DL (0.2-1.0); BLOOD UREA NITROGEN 15 MG/DL (7-18); CALCIUM LEVEL 9.7 MG/DL (8.8-10.2); CARBON DIOXIDE LEVEL 32 MEQ/L (21-32); CHLORIDE LEVEL 98 MEQ/L (98-107); CREATININE FOR GFR 1.05 MG/DL (0.70-1.30); GLOMERULAR FILTRATION RATE > 60.0 (>49); GLUCOSE, FASTING 94 MG/DL (70-100); LIPASE 84 U/L (73-393); POTASSIUM SERUM 5.1 MEQ/L (3.5-5.1); SODIUM LEVEL 131 MEQ/L (136-145); TOTAL PROTEIN 8.1 GM/DL (6.4-8.2)
[2022-08-13] MEDS ORDERED: PERCOCET 5MG/325MG TAB PO ONE (19:10)
[2022-08-14] MEDS ORDERED: KETOROLAC 30 MG/ML 1ML VIAL IV ONE
[2022-08-14] MEDS ORDERED: GABAPENTIN 300 MG CAP PO STA (00:19)
[2022-08-14 01:12] VITALS: BP 127/87
== END 2022-08-14 01:43 | disposition home or self-care (01) ==
LOC: M ED 13:42
DX: S22.000A Wedge compression fracture of unspecified thoracic vertebra, initial encounter for closed fracture (principal); M50.33 Other cervical disc degeneration, cervicothoracic region; J44.9 Chronic obstructive pulmonary disease, unspecified; C64.9 Malignant neoplasm of unspecified kidney, except renal pelvis; F17.200 Nicotine dependence, unspecified, uncomplicated; Z90.5 Acquired absence of kidney; Z79.82 Long term (current) use of aspirin; Z79.51 Long term (current) use of inhaled steroids; Z79.899 Other long term (current) drug therapy
CPT/HCPCS: 72141; 72146; 80048; 80076; 81002; 83690; 85025; 87486; 87581; 87633; 87798; 96374; 99284; J1885

== ENCOUNTER 2022-08-15 09:51 | Emergency (ER) | payer MEDICARE, OTHER ==
[~2022-08-15] VITALS: Ht 172.7 cm; Wt 62.7 kg
[~2022-08-15 09:51] MED LIST changes: +LEVO100T5; +METH-1164; +TRAM50TA2
[2022-08-15 10:24] VITALS: BP 113/83
== END 2022-08-15 10:30 | disposition left against medical advice (07) ==
LOC: M ED 09:51 → EDBD 09:51 → M ED 10:30
DX: Z53.21 Procedure and treatment not carried out due to patient leaving prior to being seen by health care provider (principal)

== ENCOUNTER → 2022-10-30 | Outpatient (REF) | payer MEDICARE, OTHER | LOC: M LAB REF 15:50 | PROVIDERS: ATTEND Physician Assistant Medical | DX: J01.00 Acute maxillary sinusitis, unspecified (principal) ==

== ENCOUNTER → 2022-12-16 | Outpatient (REF) | payer MEDICARE, OTHER ==
[~2022-12-16] MED LIST changes: +LIDO15SO4 PO; -LIDO2SOL17 PO
[2022-12-16 17:47] LABS: APPEARANCE, URINE CLEAR (CLEAR); BILIRUBIN, URINE AUTO NEGATIVE (NEGATIVE); BLOOD, URINE BLOOD NEGATIVE (NEGATIVE); COLOR, URINE YELLOW (YELLOW); GLUCOSE, URINE (UA) AUTO NEGATIVE (NEGATIVE); KETONE, URINE AUTO NEGATIVE (NEGATIVE); LEUKOCYTE ESTERASE, URINE AUTO NEGATIVE (NEGATIVE); NITRITE, URINE AUTO NEGATIVE (NEGATIVE); PROTEIN, URINE AUTO NEGATIVE (NEGATIVE); SPECIFIC GRAVITY URINE AUTO 1.023 (1.002-1.035); UROBILINOGEN, URINE AUTO 0.2 mg/dL (0.0-2.0)
[2022-12-16 18:01] LABS: BACTERIA, URINE AUTO NEGATIVE (NEGATIVE); RBC, URINE AUTO 0 /HPF (0-3); SQUAMOUS EPITHELIAL CELL UR AU 2 /HPF (0-6); WBC, URINE AUTO 1 /HPF (0-3)
== END ==
LOC: M SMT 16:59
PROVIDERS: ATTEND Urology
DX: Z87.898 Personal history of other specified conditions (principal)

== ENCOUNTER → 2022-12-16 | Outpatient (REF) | payer MEDICARE, OTHER | LOC: M LAB REF 17:28 | PROVIDERS: ATTEND Otolaryngology | DX: J01.00 Acute maxillary sinusitis, unspecified (principal) ==

== ENCOUNTER → 2022-12-17 | Outpatient (CLI) | payer MEDICARE, OTHER | LOC: M PLAIMG 11:31 | PROVIDERS: ATTEND Nurse Practitioner | DX: M54.2 Cervicalgia (principal); Z98.1 Arthrodesis status; M48.52XA Collapsed vertebra, not elsewhere classified, cervical region, initial encounter for fracture; M47.812 Spondylosis without myelopathy or radiculopathy, cervical region; J43.2 Centrilobular emphysema; T84.296A Other mechanical complication of internal fixation device of vertebrae, initial encounter; Y83.1 Surgical operation with implant of artificial internal device as the cause of abnormal reaction of the patient, or of later complication, without mention of misadventure at the time of the procedure ==

== ENCOUNTER → 2022-12-29 | Outpatient (REF) | payer OTHER, MEDICARE ==
[~2022-12-29] MED LIST changes: +MONT-5 PO; -SING10TA32 PO
[2022-12-29 13:52] LABS: ALBUMIN 3.6 G/DL (3.2-5.2); ALKALINE PHOSPHATASE 97 U/L (46-116); ALT/SGPT 14 U/L (7.0-40); AST/SGOT 16 U/L (<34); BILIRUBIN,TOTAL 0.3 MG/DL (0.3-1.2); BLOOD UREA NITROGEN 22 MG/DL (9-23); CALCIUM LEVEL 9.7 MG/DL (8.3-10.6); CARBON DIOXIDE LEVEL 29 MMOL/L (20-31); CHLORIDE LEVEL 103 MMOL/L (98-107); CHOLESTEROL LEVEL 149 MG/DL (<200); CHOLESTEROL RISK RATIO 2.74 (<5); GLOMERULAR FILTRATION RATE > 60.0 (>49); GLUCOSE, FASTING 101 MG/DL (74-106); HDL CHOLESTEROL 54.2 MG/DL (>40); NON-HDL-C 95 MG/DL; SODIUM LEVEL 136 MMOL/L (136-145); THYROID STIMULATING HORMONE 28.623 uIU/ML (0.55-4.78)
[2022-12-29 15:31] LABS: LDL CHOLESTEROL 80.2 MG/DL (<100); TOTAL PROTEIN 7.2 G/DL (5.7-8.2); TRIGLYCERIDES LEVEL 73 MG/DL (<150)
== END ==
LOC: M LAB REF 12:41
PROVIDERS: ATTEND Family Medicine Addiction Medicine
DX: E03.9 Hypothyroidism, unspecified (principal)

== ENCOUNTER → 2023-01-05 | Outpatient (REF) | payer MEDICARE, OTHER ==
[~2023-01-05] MED LIST changes: +ALBU8.5H INH; +DOCU100C16 PO; +FINA5TAB2 PO; +FLOM0.4C39 PO; -LEVO100T5; +LEVO100T5 PO; +LIDO15SO PO; -LIDO15SO4 PO; -METH-1164; +METH-1164 PO; +OXYC5CAP56 PO; -TRAM50TA2; +TRAM50TA2 PO
[2023-01-05 17:53] LABS: FREE T4 0.74 NG/DL (0.89-1.76); THYROID STIMULATING HORMONE 30.103 uIU/ML (0.55-4.78)
== END ==
LOC: M LAB REF 16:18
PROVIDERS: ATTEND Family Medicine Addiction Medicine
DX: E03.9 Hypothyroidism, unspecified (principal)

== ENCOUNTER → 2023-01-22 | Outpatient (CLI) | payer MEDICARE, OTHER ==
[~2023-01-22] MED LIST changes: -LIDO15SO PO; +LIDO15SO4 PO
== END ==
LOC: M LABSMTC 07:33
PROVIDERS: ATTEND Anesthesiology
DX: Z01.818 Encounter for other preprocedural examination (principal); Z11.52 Encounter for screening for COVID-19

== ENCOUNTER → 2023-01-26 | Outpatient (CLI) | payer MEDICARE, OTHER | LOC: M PLAIMG 10:59 | PROVIDERS: ATTEND Nurse Practitioner | DX: M54.2 Cervicalgia (principal) ==

== ENCOUNTER → 2023-02-17 | Outpatient (REF) | payer MEDICARE, OTHER ==
[~2023-02-17] MED LIST changes: +LIDO15SO PO; -LIDO15SO4 PO
== END ==
LOC: M SMT 17:02
PROVIDERS: ATTEND Physician Assistant
DX: N40.0 Benign prostatic hyperplasia without lower urinary tract symptoms (principal)

== ENCOUNTER → 2023-02-18 | Outpatient (REF) | payer MEDICARE, OTHER ==
[2023-02-18 17:30] LABS: BASO % 0.4 % (0.0-1.0); EOS # 0.1 10^3/uL (0.0-0.5); EOS % 1.2 % (0.0-3.0); HEMATOCRIT 35.2 % (42.0-52.0); HEMOGLOBIN 11.5 g/dl (13.5-17.5); LYMPH # 0.6 10^3/uL (1.5-5.0); LYMPH % 7.5 % (24.0-44.0); MEAN CORPUSCULAR HEMOGLOBIN 32.5 pg (27.0-33.0); MEAN CORPUSCULAR HGB CONC 32.7 g/dl (32.0-36.5); MEAN CORPUSCULAR VOLUME 99.4 fl (80.0-96.0); MONO # 0.5 10^3/uL (0.0-0.8); MONO % 7.3 % (2.0-8.0); NEUTROPHILS # 6.1 10^3/uL (1.5-8.5); NEUTROPHILS % 83.2 % (36.0-66.0); PLATELET COUNT, AUTOMATED 278 10^3/uL (150-450); RED BLOOD COUNT 3.54 10^6/uL (4.30-6.10); WHITE BLOOD COUNT 7.3 10^3/uL (4.0-10.0)
[2023-02-18 17:41] LABS: PROTHROMBIN TIME 13.4 SECONDS (12.5-14.5)
[2023-02-18 17:42] LABS: PARTIAL THROMBOPLASTIN TIME 28.9 SECONDS (24.8-34.2)
[2023-02-18 17:58] LABS: ALBUMIN 3.4 G/DL (3.2-5.2); ALKALINE PHOSPHATASE 91 U/L (46-116); ALT/SGPT 10 U/L (7.0-40); AST/SGOT 21 U/L (<34); BILIRUBIN,TOTAL 0.2 MG/DL (0.3-1.2); BLOOD UREA NITROGEN 23 MG/DL (9-23); CALCIUM LEVEL 8.5 MG/DL (8.3-10.6); CARBON DIOXIDE LEVEL 30 MMOL/L (20-31); CHLORIDE LEVEL 102 MMOL/L (98-107); CREATININE FOR GFR 1.01 MG/DL (0.70-1.30); GLOMERULAR FILTRATION RATE > 60.0 (>49); GLUCOSE, FASTING 82 MG/DL (74-106); POTASSIUM SERUM 5.3 MMOL/L (3.5-5.1); SODIUM LEVEL 136 MMOL/L (136-145); TOTAL PROTEIN 6.4 G/DL (5.7-8.2)
[2023-02-18 18:00] LABS: THYROID STIMULATING HORMONE 24.157 uIU/ML (0.55-4.78)
== END ==
LOC: M LAB REF 17:17
PROVIDERS: ATTEND Family Medicine Addiction Medicine
DX: Z01.89 Encounter for other specified special examinations (principal); E03.9 Hypothyroidism, unspecified